=== PATIENT | female | born 1970 | race Caucasian/White ===

== ENCOUNTER 2023-01-13 13:21 | Emergency (ER) | payer MEDICARE ==
[~2023-01-13] VITALS: Ht 162.6 cm; Wt 86.4 kg
[2023-01-13 13:23] VITALS: BP 119/92; PULSE 88; RESP 20; TEMP 98
[2023-01-13] MEDS ORDERED: INSU100V SQ (13:28)
[2023-01-13] MEDS ORDERED: ATOR10TA PO (13:28)
[2023-01-13] MEDS ORDERED: GABA-1181 PO (13:28)
[2023-01-13] MEDS ORDERED: LISI-892 PO (13:28)
[2023-01-13] MEDS ORDERED: MELO-381 PO (13:28)
[2023-01-13] MEDS ORDERED: INSLAN SQ (13:28)
[2023-01-13] MEDS ORDERED: OMEP20 PO (13:28)
[2023-01-13] MEDS ORDERED: EMPA25TA3 PO (13:28)
[2023-01-13] MEDS ORDERED: HYDR200T38 PO (13:28)
[2023-01-13] MEDS ORDERED: DULA3PEN SQ (13:28)
[2023-01-13] MEDS ORDERED: PERTUSS(ACELL),DIPH,TET VAC/PF 0.5 ML SYRINGE IM. ONE (14:15)
[2023-01-13] MEDS ORDERED: IBUP-1492 PO (14:21)
[2023-01-13] MEDS ORDERED: PERCT PO (14:35)
== END 2023-01-13 14:38 | disposition home or self-care (01) ==
LOC: EMS 13:30
DX: S93.492A Sprain of other ligament of left ankle, initial encounter (principal); S90.512A Abrasion, left ankle, initial encounter; E11.9 Type 2 diabetes mellitus without complications; E78.00 Pure hypercholesterolemia, unspecified; Z90.49 Acquired absence of other specified parts of digestive tract; Z90.710 Acquired absence of both cervix and uterus; Z98.51 Tubal ligation status; Z98.890 Other specified postprocedural states; W19.XXXA Unspecified fall, initial encounter; Y93.89 Activity, other specified; Y92.89 Other specified places as the place of occurrence of the external cause; Y99.8 Other external cause status
CPT/HCPCS: 29515; 82962; 90471; 90715; 99283